=== PATIENT | male | born 1995 | race African-American/Black ===

== ENCOUNTER 2021-07-09 13:33 | Emergency (ER) | payer BC, SELFPAY ==
--- NOTE | ~2021-07-09 | XR_ITS ---
EXAMINATION: XR chest 2V EXAM DATE: 07/09/2021 13:49 INDICATION: Woke up with centralized CP, SOB. smoker. TECHNIQUE: Frontal and lateral projections of the chest obtained and reviewed. There is no prior neo dy for comparison. FINDINGS: The lungs are clear. There are no pleural effusions. The cardiomediastinal silhouette is within normal limits. There is no pneumothorax suspected. The bones and soft tissues are unremarkab le. IMPRESSION: No acute cardiopulmonary findings. Reviewed, dictated and finalized at location A.
--- NOTE | 2021-07-09 13:38 | ECG_ITS ---
Measurements Intervals [place] Rate: 85 P: 70 OR: 140 QRS: 80 QRSD: 89 T: 31 QT: 356 QTc: 426 Interpretive Statements SINUS RHYTHM NORMAL ECG Electronically Signed On 07-09-2021 13:45:18 CDT by Kenny Simmons D.O.
[2021-07-09 13:55] VITALS: BP 129/80; PULSE 76; RESP 12; TEMP 36.8; O2SAT 96
[2021-07-09 14:04] LABS: Basophils Percent Auto 0.2 % (0.2-1.2); Eosinophils Percent Auto 0.7 % (0-4.4); Hematocrit 44.4 % (42.0-52.0); Hemoglobin 14.9 g/dL (14.0-18.0); Immature Granulocyte Absolute 0.01 K/mm3 (0.00-0.031); Immature Granulocyte Percent A 0.2 % (0-0.5); Lymphocytes Absolute Auto 2.44 K/mm3 (0.9-3.2); Lymphocytes Percent Auto 44.6 % (18.3-44.2); Mean Corpuscular HGB Conc 33.6 g/dl (32-36); Mean Corpuscular Hemoglobin 31.2 pg (26-34); Mean Corpuscular Volume 92.9 fl (80-100); Mean Platelet Volume 8.1 fl (7.4-10.4); Monocytes Absolute Auto 0.4 K/mm3 (0.1-0.6); Monocytes Percent Auto 6.8 % (2.6-8.5); Neutrophils Absolute Auto 2.6 K/mm3 (1.3-6.7); Neutrophils Percent Auto 47.5 % (45.5-73.1); Platelet Count Result 256 k/mm3 (150-375); Red Blood Count 4.78 M/mm3 (4.6-6.20); Red Cell Distribution Width 13.1 % (11.5-14.5); White Blood Count 5.5 K/mm3 (4.5-10.0)
[2021-07-09 14:21] LABS: Anion Gap 9 mmol/L (8-16); Blood Urea Nitrogen 13 mg/dL (9-20); Calcium 8.6 mg/dL (8.4-10.2); Carbon Dioxide 22 mmol/L (22-30); Chloride 106 mmol/L (98-107); Estimated CRCL calculation 122 ml/min; Estimated Glomerular Filt Rate > 60; Glucose 95 mg/dL (65-110); Sodium 137 mmol/L (137-145)
[2021-07-09 14:27] LABS: INR 0.8; Partial Thromboplastin Time 29.6 SECONDS (22.3-36.8); Prothrombin Time 10.7 Seconds (11.1-14.7)
[2021-07-09 14:30] LABS: Troponin I 0.018 ng/mL (0.000-0.034)
[2021-07-09 14:44] VITALS: BP 126/82; PULSE 65; RESP 14; TEMP 36.3; O2SAT 98
--- NOTE | 2021-07-09 15:21 | ED.CHESTPAIN ---
HPI - Chest Pain General Chief Complaint: Chest Pain Stated Complaint: Chest pain, shortness of breath Time Seen by Provider: 07/09/21 14:49 Source: patient Mode of arrival: ambulatory Limitations: no limitations History of Present Illness HPI narrative: The patient is a 25 yo male who presents for evaluation of cough, fever and shortness of breath over the past three days. Patient began to have mid sternal chest heaviness with left sided neck pain. Pain has been constant over the past three days. He has been ambulatory, no worsening with exertion. Pt also reports diarrhea today. No known sick contacts. Pt is a college student. He has had the first dose of the Pfizer vaccine in March, did not receive second dose. Pt has had four negative covid tests. He did self administer these tests. Pt denies sore throat. He does report mild headache. Related Data Allergies Allergy/AdvReac Type Severity Reaction Status Date / Time No Known Allergies Allergy Unverified 06/05/21 14:38 Review of Systems Review of Systems: CONSTITUTIONAL: Denies fever, chills, or sweats. EYES: Denies visual changes, redness, or discharge. ENT: Denies rhinorrhea, congestion, sore throat, or otalgia. CARDIOVASCULAR:Reports chest pain without palpitations, no edema or calf pain RESPIRATORY: Denies cough or dyspnea. GASTROINTESTINAL: Denies abdominal pain, nausea, vomiting, or diarrhea. GENITOURINARY: Denies dysuria or hematuria. SKIN: Denies rash or itching. MUSCULOSKELETAL: Denies back pain, joint pain, no myalgias NEUROLOGIC: Denies headache, numbness, or weakness. PSYCHIATRIC: Denies anxiety or depression. [facility] Social History Social History (Updated 07/09/21 @ 16:15 by Leena Bowers MD) Smoking status: Never smoker Alcohol intake: current Substance use: current Substance use type: marijuana Occupation/Education: student Gender identity (if verbalized by the patient): Male Exam Narrative: GENERAL: Awake, alert, conversant HEAD: Normocephalic, atraumatic. EYES: PERRLA and EOMI. ENT: Nares clear, no rhinorrhea or epistaxis. Mucous membranes moist. NECK: Supple. CHEST: No respiratory distress, breathing even and non labored, no reproducible chest wall tenderness HEART: Regular rate, sinus rhythm ABDOMEN:Non distended, non tender EXTREMITIES: Normal range of motion. No edema. SKIN: Warm, dry, no rash. NEURO:No focal deficits. Alert and oriented x3 Course Vital Signs Vital signs: Vital Signs Temperature 36.8 C 07/09/21 13:55 Pulse Rate 76 07/09/21 13:55 Respiratory Rate 12 07/09/21 13:55 Blood Pressure 129/80 07/09/21 13:55 Pulse Oximetry 96 07/09/21 13:55 Temperature 36.3 C L 07/09/21 14:44 Pulse Rate 90 07/09/21 16:46 Respiratory Rate 14 07/09/21 14:44 Blood Pressure 125/67 07/09/21 16:46 Pulse Oximetry 98 07/09/21 16:46 MDM - Chest Pain MDM Narrative Medical decision making narrative: Patient presented for evaluation of chest pain in the setting of recent upper respiratory infection type symptoms. At the time of assessment, vital signs are stable. EKG without acute ischemic changes. There are some nonspecific ST segment changes that might be consistent with benign early repolarization. No Brugada pattern or delta wave. Chest x-ray is normal. Initial troponin is slightly elevated at 0.018. Second troponin uptrend slightly to 0.02. D-dimer is negative. After speaking with taxation consultant on-call, Dr. Gimenez recommends patient be admitted and to have echocardiogram ordered for the morning. At this point, patient may have pericarditis versus myocarditis, although would suspect significantly elevated troponin with myocarditis. No sign of acute congestive heart failure. Cardiology does not want any anticoagulatoin at this point. Pt given NSAIDs in the ER. PE unlikely given D-dimer is negative. Will also swab for Covid given recent symptoms. Patient was updated, admitted in stable condition to
[2021-07-09 16:46] VITALS: BP 125/67; PULSE 90; O2SAT 98
--- NOTE | 2021-07-09 17:26 | ECG_ITS ---
Measurements Intervals [place] Rate: 51 P: 51 UT: 175 QRS: 75 QRSD: 90 T: 51 QT: 399 QTc: 368 Interpretive Statements SINUS BRADYCARDIA WITH SINUS ARRHYTHMIA ST ELEVATION IN ANTEROLAT/INF LEADS, PROBABLY EARLY REPOLARIZATION BORDERLINE ECG Electronically Signed On 07-09-2021 18:53:00 CDT by Kenny Simmons D.O.
[2021-07-09] MEDS: KETOROLAC 15 MG/ML VIAL (*BKC) IV PUSH (17:35)
[2021-07-09 17:49] LABS: D Dimer 0.27 ug/mL (<0.48)
--- NOTE | 2021-07-09 19:20 | PM.IMHP ---
Meds Home Medications and Allergies Allergies Allergy/AdvReac Type Severity Reaction Status Date / Time No Known Allergies Allergy Unverified 06/05/21 14:38 Vital Signs Vital Signs - 24 hr 07/09/21 13:55 07/09/21 14:44 07/09/21 16:46 Temperature 98.3 F 97.4 F L Pulse Rate 76 65 90 Respiratory Rate 12 14 Blood Pressure 129/80 126/82 125/67 Pulse Oximetry 96 98 98 Quality
[2021-07-09 20:17] LABS: Troponin I < 0.012 ng/mL (0.000-0.034)
[2021-07-10 20:01] LABS: SARS-CoV-2 RNA PCR Negative
== END 2021-07-09 20:22 | disposition left against medical advice (07) ==
PROVIDERS: Internal Medicine Interventional Cardiology; Emergency Provider Emergency Medicine
DX: Z20.822 Contact with and (suspected) exposure to COVID-19 (principal); R07.89 Other chest pain; R00.1 Bradycardia, unspecified
CPT/HCPCS: 36415; 71046; 80048; 84484; 85025; 85380; 85610; 85730; 93005; 96374; 99284; C9803; J1885; U0003; U0005

== ENCOUNTER 2024-01-12 11:37 | Outpatient (CLI) | payer OTHER, SELFPAY ==
[2024-01-12 12:35] LABS: Alanine Aminotransferase 67 U/L (6-50); Albumin Level 4.5 g/dL (3.5-5.1); Alkaline Phosphatase 79 U/L (38-126); Anion Gap 7 mmol/L (8-16); Aspartate Amino Transferase 67 U/L (17-59); Bilirubin,Total 0.5 mg/dL (0.2-1.3); Blood Urea Nitrogen 17 mg/dL (9-20); Calcium 9.3 mg/dL (8.4-10.2); Carbon Dioxide 25 mmol/L (22-30); Chloride 107 mmol/L (98-107); Cholesterol 204 mg/dL (0-200); Estimated Glomerular Filt Rate > 60; Glucose 104 mg/dL (65-110); HDL Direct 50 mg/dL; Sodium 139 mmol/L (137-145); Triglycerides 314 mg/dL (<150)
[2024-01-12 12:46] LABS: LDL Cholesterol Direct 93 mg/dL
[2024-01-12 13:05] LABS: Total Triiodothyronine (T3) 1.37 NG/ML (0.97-1.69)
[2024-01-12 13:16] LABS: HIV 1/2 Ab P24 Ag Result Negative (Negative)
[2024-01-12 14:03] LABS: Free T4 Free Thyroxine 0.92 ng/mL (0.78-2.19)
[2024-01-12 14:17] LABS: Hepatitis B Surface Antigen Negative (Negative)
[2024-01-12 14:23] LABS: HAV RESULT Negative (Negative); Hepatitis B Core IgM Result Negative (Negative)
[2024-01-12 14:35] LABS: Hepatitis C Virus Antibody Negative (Negative)
[2024-01-12 14:49] LABS: Basophils Percent Auto 0.4 % (0.2-1.2); Eosinophils Percent Auto 0.6 % (0-4.4); Hemoglobin 15.4 g/dL (14.0-18.0); Immature Granulocyte Absolute 0.01 K/mm3 (0.00-0.031); Immature Granulocyte Percent A 0.2 % (0-0.5); Lymphocytes Absolute Auto 2.21 K/mm3 (0.9-3.2); Lymphocytes Percent Auto 43.9 % (18.3-44.2); Mean Corpuscular HGB Conc 33.5 g/dl (32-36); Mean Corpuscular Hemoglobin 30.5 pg (26-34); Mean Corpuscular Volume 91.1 fl (80-100); Mean Platelet Volume 8.3 fl (7.4-10.4); Monocytes Absolute Auto 0.3 K/mm3 (0.1-0.6); Neutrophils Absolute Auto 2.5 K/mm3 (1.3-6.7); Neutrophils Percent Auto 48.9 % (45.5-73.1); Platelet Count Result 283 k/mm3 (150-375); Red Blood Count 5.05 M/mm3 (4.6-6.20); Red Cell Distribution Width 12.9 % (11.5-14.5)
== END 2024-01-12 11:38 | disposition home or self-care (01) ==
PROVIDERS: PCP Registered Nurse; Visit Provider Registered Nurse
DX: Z20.2 Contact with and (suspected) exposure to infections with a predominantly sexual mode of transmission (principal); I10 Essential (primary) hypertension; E78.5 Hyperlipidemia, unspecified; R53.83 Other fatigue
CPT/HCPCS: 36415; 80053; 80061; 80074; 84439; 84443; 84480; 85025; 86703; G0432

== ENCOUNTER 2024-02-28 18:51 | Emergency (ER) | payer OTHER, SELFPAY ==
--- NOTE | ~2024-02-28 | XR_ITS ---
EXAMINATION: XR chest 2V DATE: 02/28/2024 19:54 INDICATION: Palpitations. TECHNIQUE: Frontal and lateral views of the chest were obtained. COMPARISON: None. FINDINGS: There is no pneumonia, pleural effusion, or pneumothorax. The heart size is normal. IMPRESSION: 1. No acute cardiopulmonary disease. Reviewed, dictated and finalized at location E.
[2024-02-28 19:14] VITALS: BP 136/87; PULSE 87; RESP 14; TEMP 36.6; O2SAT 97
--- NOTE | 2024-02-28 19:17 | ECG_ITS ---
SEE SCANNED COPY FOR CONFIRMED REPORT MTDD
[2024-02-28 19:38] LABS: Basophils Percent Auto 0.4 % (0.2-1.2); Eosinophils Percent Auto 0.4 % (0-4.4); Hematocrit 45.5 % (42.0-52.0); Hemoglobin 15.8 g/dL (14.0-18.0); Immature Granulocyte Absolute 0.02 K/mm3 (0.00-0.031); Immature Granulocyte Percent A 0.4 % (0-0.5); Lymphocytes Absolute Auto 2.22 K/mm3 (0.9-3.2); Lymphocytes Percent Auto 39.6 % (18.3-44.2); Mean Corpuscular HGB Conc 34.7 g/dl (32-36); Mean Corpuscular Hemoglobin 31.1 pg (26-34); Mean Corpuscular Volume 89.6 fl (80-100); Mean Platelet Volume 8.2 fl (7.4-10.4); Monocytes Absolute Auto 0.4 K/mm3 (0.1-0.6); Monocytes Percent Auto 6.4 % (2.6-8.5); Neutrophils Percent Auto 52.8 % (45.5-73.1); Platelet Count Result 295 k/mm3 (150-375); Red Blood Count 5.08 M/mm3 (4.6-6.20); Red Cell Distribution Width 12.7 % (11.5-14.5); White Blood Count 5.6 K/mm3 (4.5-10.0)
[2024-02-28 19:47] LABS: Alanine Aminotransferase 75 U/L (6-50); Albumin Level 4.5 g/dL (3.5-5.1); Alkaline Phosphatase 83 U/L (38-126); Anion Gap 6 mmol/L (4-12); Aspartate Amino Transferase 47 U/L (17-59); Bilirubin,Total 0.7 mg/dL (0.2-1.3); Blood Urea Nitrogen 19 mg/dL (9-20); Calcium 8.9 mg/dL (8.4-10.2); Carbon Dioxide 25 mmol/L (22-30); Chloride 108 mmol/L (98-107); Estimated CRCL calculation 93 ml/min; Estimated Glomerular Filt Rate > 60; Glucose 97 mg/dL (65-110); Lipase 197 U/L (23-300); Potassium 4.1 mmol/L (3.4-5.0); Sodium 139 mmol/L (137-145)
[2024-02-28 19:48] LABS: INR 0.9; Prothrombin Time 12.3 Seconds (11.1-14.7)
[2024-02-28 19:50] LABS: Partial Thromboplastin Time 30.6 Seconds (22.3-36.8)
[2024-02-28 19:58] LABS: Troponin I 0.028 ng/mL (0.000-0.034)
[2024-02-28 23:58] VITALS: PULSE 82
[2024-02-28 23:59] VITALS: O2SAT 99
[2024-02-29] VITALS: BP 139/100; PULSE 78; RESP 19; O2SAT 99
[2024-02-29 00:27] VITALS: BP 162/81; PULSE 87; RESP 14; O2SAT 100
--- NOTE | 2024-02-29 00:59 | ED.CHESTPAIN ---
HPI - Chest Pain General Chief Complaint: Chest Pain Stated Complaint: chest pain Time Seen by Provider: 02/29/24 00:04 History of Present Illness HPI narrative: Patient with history of anxiety presents here with with sensation that his heart is beating very loudly or feels like it is beating very strongly. He has an [employer] watch and knows that it is not fast. No chest pain, no shortness of breath. He does take anxiety medications and thinks that his anxiety is now better controlled but is still concerned about this. Related Data Allergies Allergy/AdvReac Type Severity Reaction Status Date / Time No Known Allergies Allergy Verified 02/29/24 00:01 Review of Systems Review of Systems: CONST: No fever. HEENT: No sore throat C/V: Palpitations RESP: No cough GI: No abdominal pain : No dysuria. M/S: No joint pain. SKIN: No rash. NEURO: [No headache or focal numbness or weakness] PSYCH: [No depression] [facility] Past Medical History Medical History Anxiety Family History Family History Father Alcoholism Mother Diabetes mellitus Cancer Depression Anxiety Sibling Depression Anxiety Thyroid disorder Social History Social History Social History: Occasional marijuana use. Denies alcohol abuse. Smoking status: Never smoker Tobacco type: e-cigarettes/vaping Substance use: current Substance use type: marijuana Living arrangements: alone Exam Narrative: EXAMINATION OF ORGAN SYSTEMS/BODY AREAS: Constitutional: Vital signs per nursing GENERAL:[No acute distress, non-toxic appearing.] HEAD: Normal with no signs of head trauma. EYES: EOMI, conjunctiva normal ENT: Hearing grossly intact LUNGS: Nonlabored breathing. HEART: [Regular rate and rhythm]; normal radial pulses. ABD: [Soft], [nontender to palpation] EXT: Normal range of motion SKIN: [No rashes or lesions.] NEURO: [Alert and oriented x 3. No gross focal sensory or strength deficits.] PSYCH: Normal affect Course Vital Signs Vital signs: Vital Signs Temperature 97.8 F 02/28/24 19:14 Pulse Rate 87 02/28/24 19:14 Respiratory Rate 14 02/28/24 19:14 Blood Pressure 136/87 02/28/24 19:14 Pulse Oximetry 97 02/28/24 19:14 Temperature 97.8 F 02/28/24 19:14 Pulse Rate 78 02/29/24 00:00 Respiratory Rate 19 02/29/24 00:00 Blood Pressure 139/100 H 02/29/24 00:00 Pulse Oximetry 99 02/29/24 00:00 Oxygen Delivery Room Air 02/28/24 23:59 MDM - Chest Pain MDM Narrative Medical decision making narrative: Patient with history of anxiety/panic attacks presenting here with palpitations, he has had them on and off since teenager. On exam patient is very well appearing, in no distress, normal vital signs. Cardiac workup initiated to rule out arrhythmia/ischemia or other cardiac/pulmonary causes. Chest x-ray on my independent interpretation does not show any acute abnormality, no pneumothorax or consolidation. EKG - 12-Lead: Performed at 1923. Interpreted by me. [Sinus rhythm]. Rate 83. [Normal] axis. ID-interval [normal]. QRS duration [normal]. QTc [normal]. [No ST segment elevation or depression]. [T-wave normal]. Impression: No EKG evidence of acute ischemia or dysrhythmia. All labs including troponin were within normal limits. I do feel patient is stable for discharge home at this time with followup to their doctor, and return here if symptoms return or worsen. Patient agreeable to outpatient management with cardiology follow-up. Lab Data 02/28/24 19:30 02/28/24 19:30 Labs: Lab Results 02/28/24 Range/Units 19:30 WBC 5.6 (4.5-10.0) K/mm3 RBC 5.08 (4.6-6.20) M/mm3 Hgb 15.8 (14.0-18.0) g/dL Hct 45.5 (42.0-52.0) % MCV 89.6 (80-100) fl MCH 31.1 (26-34) pg MCHC 34.
== END 2024-02-29 00:27 | disposition home or self-care (01) ==
LOC: ANHED 02-29 00:15
PROVIDERS: Emergency Provider Emergency Medicine; PCP Registered Nurse
DX: R00.2 Palpitations (principal)
CPT/HCPCS: 36415; 71046; 80053; 83690; 84484; 85025; 85610; 85730; 93005; 99284

== ENCOUNTER 2024-12-26 19:27 | Emergency (ER) | payer OTHER, SELFPAY ==
[2024-12-26 19:45] VITALS: BP 140/80; PULSE 91; RESP 18; TEMP 36.8; O2SAT 100
--- NOTE | 2024-12-26 20:06 | ED.URI ---
HPI - URI/Sore Throat General Chief Complaint: Upper Respiratory Infection Stated Complaint: Sinus Time Seen by Provider: 12/26/24 19:55 Source: patient Mode of arrival: ambulatory Limitations: no limitations History of Present Illness HPI Narrative: Atul is a 29-year-old male patient presenting to the clinic today with complaints of runny nose, cough, and sinus drainage. He reports symptoms started today. He was at a [employer] party on Wednesday and around somebody who was ill. Denies any known fevers, chills, body aches. MD elicited complaint: sore throat and nasal congestion Related Data Home Medications ?Medication ?Instructions ?Recorded ?Confirmed ?Last Taken ?Type paroxetine HCl 20 mg tablet mg PO 12/26/24 Unknown History Allergies Allergy/AdvReac Type Severity Reaction Status Date / Time No Known Allergies Allergy Verified 12/26/24 19:57 Review of Systems Review of Systems: Pertinent positives per HPI. Patient denies any fever, chills, rash, headache, visual changes, dizziness, shortness of breath, chest pain, palpitations, nausea, vomiting, diarrhea, constipation, abdominal pain, or any urinary issues. [facility], [facility] Past Medical History Medical History Anxiety Family History Family History Father Alcoholism Mother Diabetes mellitus Cancer Depression Anxiety Sibling Depression Anxiety Thyroid disorder Social History Social History Social History: Occasional marijuana use. Denies alcohol abuse. Smoking status: Never smoker Tobacco type: e-cigarettes/vaping Substance use: current Substance use type: marijuana Living arrangements: alone Comments At the time of my signature, I reviewed and agree with the nursing past medical, surgical, social, and family history. There is no relevant family history pertinent to the patient complaint. Exam Narrative: General: Well-developed, well nourished, in no apparent distress Head: Normocephalic, atraumatic Eyes: Pupils equally round and reactive to light bilaterally, EOM intact, sclera and conjunctive clear, no discharge, lids normal Ears: TMs intact and clear, ear canals clear, no drainage, grossly hearing normal. Nose: Nares patent, clear nasal discharge, mild inflammation, no sinus tenderness. Mouth: Oral pharynx without lesions or masses, good dentition, MMM. Postnasal drip Neck: Supple, trachea midline, no enlargement of anterior or posterior cervical nodes, no thyroid masses or goiter palpable. Cardio: Regular rate and rhythm, s1 and s2 normal, no murmur appreciated. Resp: Clear to auscultation bilaterally, no rhonchi, rales, wheezing or rubs Course Course Emergency Course: Portions of this record may have been created with voice recognition software. Level of Care: Express Care Visit Vital Signs Vital signs: Vital Signs Temperature 36.8 C 12/26/24 19:45 Pulse Rate 91 12/26/24 19:45 Respiratory Rate 18 12/26/24 19:45 Blood Pressure 140/80 12/26/24 19:45 Pulse Oximetry 100 12/26/24 19:45 Oxygen Delivery Room Air 12/26/24 19:45 Temperature 36.8 C 12/26/24 19:45 Pulse Rate 91 12/26/24 19:45 Respiratory Rate 18 12/26/24 19:45 Blood Pressure 140/80 12/26/24 19:45 Pulse Oximetry 100 12/26/24 19:45 Oxygen Delivery Room Air 12/26/24 19:45 Vital signs reviewed MDM - URI/Sore Throat MDM Narrative Medical decision making narrative: At the time of visit patient is resting comfortably on the exam table. Patient appears to be nontoxic. Labs: COVID test and influenza testing was performed and negative in the clinic today. Plan: I suspect patient has URI. Supportive measures were discussed with the patient and they voiced understanding discharge instructions and agrees to treatment plan. Return precautions reviewed Differential Diagnosis Differential diagnosis: Likely upper respiratory infection, otitis media, sinusitis, viral infection, bronchitis, influenza, pharyngitis and other (COVID) Discharge Plan Discharge Clinical Impression: Upper respiratory infection Qualifiers: URI type: unspecified URI Qualified Code(s): J06.9 - Acute upper respiratory infection, unspecified Patient Disposition: Home, Self-Care Condition: Stable Instructions: Antibiotic Form, Cold Symptoms (ED) Additional Instructions: COVID and influenza testing was negative in the clinic today. Increase fluids and stay well hydrated Tylenol/motrin for pain/fever Flonase and OTC antihistamines as directed Vicks vapor rub to open sinuses Sinus rinses for congestion Cepacol spray, cough drops, throat lozenges, warm tea with honey/lemon, gargle salt water to soothe throat BRAT diet for diarrhea Clear liquids x 24 hours then advance as tolerated for nausea/vomiting Go to the ED if you develop a worsening in your condition- high fever not controlled by Tylenol or Motrin, dehydration, weakness, lethargy, shortness of breath, or chest pain. Follow up with your PCP in 3-5 days if symptoms persist. Patient Language: Slovenian Prescriptions: No Action paroxetine HCl 20 mg tablet PO Follow-up/Referrals: Estephanie,Omkar Santos APRN [Primary Care Provider] - Stand Alone Forms: Work/School Release IP Time of Disposition: 20:07 Quality NIHSS Nursing Documentation ED NIHSS nursing documentation: reviewed/agree
[2024-12-26 20:22] LABS: EDCOVIDSCREEN Negative (Negative); EDINFLUASCREEN Negative (Negative); EDINFLUBSCREEN Negative (Negative)
== END 2024-12-26 20:15 | disposition home or self-care (01) ==
PROVIDERS: Emergency Provider Nurse Practitioner Family; PCP Registered Nurse
DX: J06.9 Acute upper respiratory infection, unspecified (principal); Z20.822 Contact with and (suspected) exposure to COVID-19; F12.90 Cannabis use, unspecified, uncomplicated
CPT/HCPCS: 87426; 87804; 99212; G0463